=== PATIENT | male | born 1970 | race Caucasian/White ===

== ENCOUNTER 2020-04-27 18:51 | Emergency (ER) | payer OTHER, SELFPAY ==
[2020-04-27 19:10] VITALS: BP 152/88; PULSE 78; RESP 18; TEMP 36.1; O2SAT 96
--- NOTE | 2020-04-27 19:10 | PC.NURSE ---
continue 1:1 monitoring of patient with tool rental technician sitting at door. patient resting at times. appears comfortable. no distress noted. denies pain.
--- NOTE | 2020-04-27 19:10 | PC.NURSE ---
per EMS report, patient called 911 himself for help. patient now being difficult with policies and procedures needed to treat him in the ED. patient states he has been admitted to [facility] for inpatient psych treatment at least 5 times. patient reminded that he knows how the process goes. reviewed again with patient need for changing his clothes and need for labs prior to placement. patient states he is not going to consent to labs. patient advised he can discuss with MD during their evaluation. sitter at bedside. patient sent to restroom to change and provide urine specimen.
--- NOTE | 2020-04-27 19:11 | ECG_ITS ---
Measurements Intervals [place] Rate: 82 P: 16 DE: 124 QRS: 60 QRSD: 90 T: 59 QT: 354 QTc: 414 Interpretive Statements SINUS RHYTHM ST ELEVATION IN ANTEROLAT/INF LEADS, PROBABLY EARLY REPOLARIZATION BORDERLINE ECG Electronically Signed On 04-28-2020 7:46:36 BLOOD BANK WORKER by Nathaniel Naik D.O.
--- NOTE | 2020-04-27 19:17 | PC.NURSE ---
PT is refusing Blood Draw RN notified
--- NOTE | 2020-04-27 19:30 | PC.NURSE ---
continue 1:1 monitoring of patient with medical research tech sitting at door. patient resting at times. appears comfortable. no distress noted. denies pain.
--- NOTE | 2020-04-27 19:30 | PC.NURSE ---
patient sitting on stretcher. security intelligence analyst in department. patient's clothing and belongings placed in storage cabinet here in ED. patient still states he is refusing labs otherwise cooperative. has changed into scrubs provided. will continue to monitor and discuss with patient need for labs and EKG.
--- NOTE | 2020-04-27 19:38 | ED.PSYCH ---
HPI - Psych General Chief Complaint: Psychiatric Symptoms Stated Complaint: SI Time Seen by Provider: 04/27/20 19:38 Source: patient and EMS Limitations: no limitations History of Present Illness HPI Narrative: Patient is a 50-year-old male with a history of former methamphetamine abuse, depression, suicidal ideation who presents for evaluation of suicidal ideation. Patient states that he left [facility] today after stating that they would not give him his prescribed psychiatric medications. Patient states that he was admitted to a inpatient psychiatric facility until Monday when he left to go to a rehabilitation facility for his history of methamphetamine abuse. Patient states that he felt suicidal earlier today, but no longer feels suicidal. He denies specific plan but states he may jump in front of traffic. He denies access to firearms. He denies access to any medications. He denies drug use or alcohol use. Patient denies auditory or visual hallucinations. Related Data Home Medications Medication Instructions Recorded Confirmed fluoxetine 10 mg DAILY 04/27/20 haloperidol 1 mg DAILY 04/27/20 haloperidol [Haldol] 2 mg HS 04/27/20 Allergies Allergy/AdvReac Type Severity Reaction Status Date / Time No Known Allergies Allergy Verified 04/27/20 20:30 Review of Systems Review of Systems: Narrative: CONSTITUTIONAL: Denies fever, chills, or sweats. EYES: Denies visual changes, redness, or discharge. ENT: Denies rhinorrhea, congestion, sore throat, or otalgia. CARDIOVASCULAR: Denies chest pain, palpitations, or edema. RESPIRATORY: Denies cough or dyspnea. GASTROINTESTINAL: Denies abdominal pain, nausea, vomiting, or diarrhea. GENITOURINARY: Denies dysuria or hematuria. SKIN: Denies rash or itching. MUSCULOSKELETAL: Denies back pain, joint pain, or myalgia. NEUROLOGIC: Denies headache, numbness, or weakness. PSYCHIATRIC: Reports anxiety and depression PMF Past Medical History Medical History Depression Methamphetamine abuse Social History Social History (Updated 04/27/20 @ 20:21 by Phyllis Guan MD) Smoking status: Current some day smoker Tobacco type: cigarettes Alcohol intake: former Substance use: former Substance use type: amphetamines Living arrangements: homeless Gender identity (if verbalized by the patient): Male Exam Narrative: Exam Narrative: GENERAL: Awake, alert, conversant HEAD: Normocephalic, atraumatic. EYES: PERRLA and EOMI. ENT: Nares clear, no rhinorrhea or epistaxis. Mucous membranes moist. NECK: Supple. CHEST: No respiratory distress, breathing even and non labored HEART: Regular rate, sinus rhythm ABDOMEN:Non distended, non tender EXTREMITIES: Normal range of motion. No edema. SKIN: Warm, dry, no rash. NEURO:No focal deficits. Alert and oriented x3 Course Vital Signs Vital signs: Vital Signs Temperature 36.1 C L 04/27/20 19:10 Pulse Rate 78 04/27/20 19:10 Respiratory Rate 18 04/27/20 19:10 Blood Pressure 152/88 H 04/27/20 19:10 Pulse Oximetry 96 04/27/20 19:10 Temperature 36.8 C 04/27/20 22:54 Pulse Rate 95 04/27/20 22:54 Respiratory Rate 18 04/27/20 22:54 Blood Pressure 101/67 04/27/20 22:54 Pulse Oximetry 98 04/27/20 22:54 MDM - Psych MDM Narrative Medical decision making narrative: Patient presents for waxing and waning suicidal ideation. Patient has been medically cleared. Awaiting crisis consultation. Pt accepted to [facility], he did eat earlier today and now glucose level is elevated. No glucosuria, not indicative of diabetes. Pt did eat while in the ED. Differential Diagnosis Differential diagnosis: Likely suicidal ideation, depression and acute anxiety Medical Records Attestation: I reviewed the patient's medical records. Lab Data Attestation: I reviewed the patient's lab results. Result diagrams: 04/27/20 19:42 1
[2020-04-27 19:50] LABS: Basophils Absolute Auto 0.1 K/mm3 (0.0-0.1); Basophils Percent Auto 0.8 % (0.2-1.2); Eosinophils Absolute Auto 0.1 K/mm3 (0-0.3); Eosinophils Percent Auto 1.2 % (0-4.4); Hematocrit 41.8 % (42.0-52.0); Hemoglobin 13.3 g/dL (14.0-18.0); Immature Granulocyte Absolute 0.09 K/mm3 (0.00-0.031); Immature Granulocyte Percent A 0.9 % (0-0.5); Lymphocytes Absolute Auto 2.63 K/mm3 (0.9-3.2); Lymphocytes Percent Auto 25.4 % (18.3-44.2); Mean Corpuscular HGB Conc 31.8 g/dl (32-36); Mean Corpuscular Hemoglobin 29.7 pg (26-34); Mean Corpuscular Volume 93.3 fl (80-100); Mean Platelet Volume 9.6 fl (7.4-10.4); Monocytes Absolute Auto 0.7 K/mm3 (0.1-0.6); Monocytes Percent Auto 7.1 % (2.6-8.5); Neutrophils Absolute Auto 6.7 K/mm3 (1.3-6.7); Neutrophils Percent Auto 64.6 % (45.5-73.1); Platelet Count Result 333 k/mm3 (150-375); Red Blood Count 4.48 M/mm3 (4.6-6.20); Red Cell Distribution Width 13.3 % (11.5-14.5); White Blood Count 10.4 K/mm3 (4.5-10.0)
--- NOTE | 2020-04-27 20:00 | PC.NURSE ---
patient now resting quietly. sitter monitoring 1:1. labs sent. urine sent.
[2020-04-27 20:02] LABS: Acetaminophen < 10 ug/mL (10-30); Add Urine Microscopic? YES; Appearance Urine Clear (Clear); Bacteria Urine Trace /hpf; Bilirubin Urine Negative (Negative); Blood Urine 2+ (Negative); Color Urine Yellow (Yellow); Ethanol < 10 mg/dL (<10); Glucose Urine UA Negative (Negative); Ketones Urine Negative (Negative); Leukocyte Esterase Ur Negative LEU/UL (Negative); Mucus Urine Rare /lpf; Nitrate Urine Negative (Negative); Protein Urine Negative (Negative); RBC Urine 21-50 /hpf (0-2); Salicylate < 1.0 mg/dL (2-20); Specific Grav Ur 1.024 (1.001-1.035); Urobilinogen Urine Negative mg/dL (<2.0); WBC Urine 0-3 /hpf
[2020-04-27 20:03] LABS: Alanine Aminotransferase 43 U/L (4-50); Albumin Level 3.8 g/dL (3.5-5.1); Alkaline Phosphatase 130 U/L (38-126); Anion Gap 7 mmol/L (8-16); Aspartate Amino Transferase 39 U/L (17-59); Bilirubin,Total 0.3 mg/dL (0.2-1.3); Blood Urea Nitrogen 22 mg/dL (9-20); Calcium 8.8 mg/dL (8.4-10.2); Carbon Dioxide 30 mmol/L (22-30); Chloride 101 mmol/L (98-107); Estimated CRCL calculation 105 ml/min; Estimated Glomerular Filt Rate > 60; Glucose 194 mg/dL (75-110); Potassium 4.6 mmol/L (3.4-5.0); Sodium 138 mmol/L (137-145)
[2020-04-27 20:07] LABS: Amphetamine Screen Urine Negative (Negative); Barbiturate Screen Urine Negative (Negative); Benzodiazepines Screen Urine Negative (Negative); Cannabinoid Screen Urine Negative (Negative); Cocaine Screen Urine Negative (Negative); Methadone Screen Urine Negative (Negative); Opiate Screen Urine Negative (Negative); Phencyclidine Screen Urine Negative (Negative)
--- NOTE | 2020-04-27 20:24 | PC.NURSE ---
all labs resulted. EKG being done now. service dispatcher placing call to Crisis for eval.
--- NOTE | 2020-04-27 20:30 | PC.NURSE ---
continue 1:1 monitoring of patient with tech intern sitting at door. patient resting at times. appears comfortable. no distress noted. denies pain.
--- NOTE | 2020-04-27 21:00 | PC.NURSE ---
continue 1:1 monitoring of patient with registered dietetic technician sitting at door. patient resting at times. appears comfortable. no distress noted. denies pain.
--- NOTE | 2020-04-27 21:45 | PC.NURSE ---
sitter at doorway. continue 1:1 monitoring. crisis still in department starting paperwork for inpatient placement. Covid swab done due to pending transfer. all explained to patient. patient given pillow. denies any other needs at this time.
--- NOTE | 2020-04-27 21:45 | PC.NURSE ---
Crisis has completed work up with patient. patient does make suicidal statements. copy of Crisis notes on patient's chart. will start calling facilities for placement.
--- NOTE | 2020-04-27 22:07 | PC.NURSE ---
report given to Mansi BEGUM.
[2020-04-27 22:54] VITALS: BP 101/67; PULSE 95; RESP 18; TEMP 36.8; O2SAT 98
[2020-04-28 00:40] LABS: Glucose Point of Care 236 (65-105)
[2020-04-28 00:40] LABS: Glucose Point of Care 240 (65-105)
[2020-04-28 01:09] LABS: Glucose Point of Care 205 (65-105)
--- NOTE | 2020-04-28 01:34 | PC.NURSE ---
Pt stating that he wishes to leave and is asking for his stuff. Pt stated its my stuff and you arent allowed to take it away from me . Pt told that he has a bed at [facility] we are just waiting for his blood sugar to come down below 200. Pt states he is not voluntary anymore and that if i want to go jump off a bridge thats my business and no one can stop me. Crisis and security notified. Anais from Crisis to come out and re-evaluate patient.
--- NOTE | 2020-04-28 01:55 | PC.NURSE ---
pt notified that Anais from Crisis will be coming back to talk to him. Pt states that he is done talking and i will be leaving in 5 minutes . Sitter and security remain at bedside.
[2020-04-28 02:25] LABS: Glucose Point of Care 167 (65-105)
--- NOTE | 2020-04-28 02:28 | PC.NURSE ---
RN called Mery at [facility] and notified her that pts blood glucose is 167. She stated she will call the pump house operator about a getting a room number. Pt has been accepted by Dr. Chamberlain.
[2020-04-28 04:22] VITALS: BP 121/69; PULSE 78; RESP 18; TEMP 36.5; O2SAT 98
--- NOTE | 2020-04-28 05:34 | PC.NURSE ---
Pt agitated, shouting and threatening to run out the ambulance bay doors. Pt states he is ready to and doesnt care how it happens . Pt stated that he doesnt care if the ict help desk technician take him out and he will do whatever it takes so that they kill him . Pt asking for medication to calm down. MD ordered 1mg ativan IM for anxiety.
[2020-04-28] MEDS: LORazepam INJ (*CRX) 2 MG/ML VIAL 1 MG IM (05:50)
[2020-04-28 18:19] LABS: SARS-CoV-2 RNA PCR Negative
== END 2020-04-28 05:50 ==
PROVIDERS: Emergency Provider Emergency Medicine
DX: R45.851 Suicidal ideations (principal); Z20.828 Contact with and (suspected) exposure to other viral communicable diseases; F32.9 Major depressive disorder, single episode, unspecified; F17.210 Nicotine dependence, cigarettes, uncomplicated; R94.31 Abnormal electrocardiogram [ECG] [EKG]
CPT/HCPCS: 36415; 80053; 80307; 81001; 82948; 84443; 85025; 87635; 93005; 96372; 99285; C9803; J2060; U0003

== ENCOUNTER 2020-06-02 08:44 | Emergency (ER) | payer OTHER, SELFPAY ==
[2020-06-02 09:04] VITALS: BP 125/87; PULSE 118; RESP 18; TEMP 36.9; O2SAT 97
--- NOTE | 2020-06-02 09:25 | ED.GENADULT ---
HPI - General Adult General Chief complaint: Unspecified Stated complaint: PSYCH EVAL Source: patient and RN notes reviewed Mode of arrival: ambulatory Limitations: no limitations History of Present Illness HPI narrative: Patient states that he is tired of doing methamphetamine. He wants to be sent to a [facility] and just locked away for ever. [place] here. He states he does not want to do drugs anymore but refuses to be sent to a drug rehab center. He denies being suicidal or homicidal. He denies any pain. complaint: Drug Withdrawl Onset (ago): day(s) (1) Related Data Home Medications Medication Instructions Recorded Confirmed fluoxetine 10 mg DAILY 04/27/20 haloperidol 1 mg DAILY 04/27/20 haloperidol [Haldol] 2 mg HS 04/27/20 Allergies Allergy/AdvReac Type Severity Reaction Status Date / Time No Known Allergies Allergy Verified 04/27/20 20:30 Review of Systems Review of Systems: All systems reviewed & are unremarkable except as noted in HPI and below PMFSH Past Medical History Medical History Depression Methamphetamine abuse Social History Social History Smoking status: Current some day smoker Tobacco type: cigarettes Alcohol intake: former Substance use: former Substance use type: amphetamines Gender identity (if verbalized by the patient): Male Exam Const: General: cooperative, no acute distress, well developed, alert, awake, Physically active and anxious Nutritional Appearance: thin Orientation/consciousness: oriented to person, oriented to place and oriented to time Limitations: no limitations HENMT: Head: normal to inspection Ears: hearing grossly normal bilaterally and external ears normal General nose exam: Normal external nose present Face and sinus: normal facial exam Mouth: Yes Normal oral and palatal mucosa present, Yes lip normal and Yes moist mucous membranes abnormal Eyes: General: appearance normal, both eyes and all related structures Visual Reyes: normal visual reyes by confrontation Eyelids: eyelids normal Conjunctivae: conjunctivae normal Sclera: sclerae normal Pupils: Equal, round and reactive pupils present EOM: EOMs intact bilaterally Neck: Neck: normal visual inspection, full ROM and trachea midline Thyroid: thyroid normal Resp: Effort & Inspection: normal respiratory effort Auscultation: clear to auscultation bilaterally Cardio: Rate: tachycardic Rhythm: regular rhythm Heart sounds: S1 normal heart sound present, S2 normal heart sound present and no murmurs GI: Inspection: normal to inspection GI Palp: No abdominal tenderness, Yes Soft to palpation, No Tenderness to palpation present (GI) and No Guarding due to palpation present (GI) Auscultation: normal bowel sounds Back/Spine/Pelvis: Back: no CVA tenderness Cervical Spine: cervical ROM normal Thoracic/Lumbar Spine: thoraco-lumbar ROM normal Skin: General skin exam: normal color Rashes: no rashes Neuro: General: patient oriented x3, gait normal and moves all extremities Cranial nerves: Yes CN's II-XII intact bilaterally Cognition (Neuro): normal cognition Speech: normal speech Gait exam (Neuro): Normal gait present Motor exam (neuro): 5/5 motor strength present throughout Extrem: General: normal to inspection, full ROM and no clubbing, cyanosis or edema Psych: Appearance: grossly normal Speech and movement: Normal speech and movement present Affect: normal affect Attitude: cooperative Thought process: Normal thought process present Thought content: Yes Normal thought content present Insight: Fair insight present (Psych) Judgement: Good judgement present (Psych) Course Course Emergency Course: Blood test as well as urine test were ordered. The patient flatly refused to have any blood drawn. I explained him t
--- NOTE | 2020-06-02 09:25 | PC.NURSE ---
Pt asked about possible inpatient drug rehab, pt states he does not want to go to rehab and that he wants to [facility] the [facility] . Pt continues to deny suicidal or homicidal ideation. Pt states that he was recently in a psych facility because he had no where to stay and that he kept telling them what they wanted to hear so that they would keep me there. Pt continues to state that rehab does not help and he is tired of disappointing people. Pt given urinal to provide urine sample. unable to at this time.
--- NOTE | 2020-06-02 09:40 | PC.NURSE ---
labs ordered per ed. pt declining to be stuck with needles. pt states he is refusing lab draw. Explained to pt that we have to have him medically cleared before we can get him help. Pt requesting to leave. Pt signed out AMA and left ambulatory.
== END 2020-06-02 09:40 | disposition left against medical advice (07) ==
LOC: CHSED 08:48
PROVIDERS: Emergency Provider Emergency Medicine
DX: F15.10 Other stimulant abuse, uncomplicated (principal)
CPT/HCPCS: 99281; 99282

== ENCOUNTER 2020-07-08 15:05 | Emergency (ER) | payer OTHER, SELFPAY ==
--- NOTE | ~2020-07-08 | XR_ITS ---
EXAMINATION: XR chest 1V portable DATE: 07/08/2020 16:41 INDICATION: Suicidal. Substance abuse. Hyperglycemia and tachycardia. TECHNIQUE: frontal view of the chest was obtained. COMPARISON: None FINDINGS: The lungs are clear with no focal airspace opacities, pulmonary edema, pleural effusion or pneumothor ax. The cardiomediastinal silhouette is normal. Visualized bones and soft tissues are unremarkable. IMPRESSION: 1. No acute cardiopulmonary disease. Reviewed, dictated and finalized at location B. PING CLERK CRATING
--- NOTE | ~2020-07-08 | XR_ITS ---
EXAMINATION: XR lumbar spine 2-3V DATE: 07/08/2020 17:35 INDICATION: Low back pain TECHNIQUE: Anteroposterior and lateral views of the lumbar spine, and cone-down lateral view of the l umbosacral junction were obtained. COMPARISON: None. FINDINGS: There is no fracture, dislocation, or subluxation. The vertebral body heights are normal. T here is mild loss of intervertebral disc space height throughout the lumbar spine. Large bridging end plate osteophytes are noted throughout the lumbar spine. Surgical clips in the right upper quadrant a re likely from prior cholecystectomy. Changes of total hip arthroplasty are noted. IMPRESSION: 1. Lumbar spondylosis without acute findings. Reviewed, dictated and finalized at location A. NESS SYSTEMS LEAD
[2020-07-08 15:15] VITALS: BP 116/70; PULSE 76; RESP 16; TEMP 36.3; O2SAT 97
--- NOTE | 2020-07-08 15:24 | ECG_ITS ---
Measurements Intervals [place] Rate: 73 P: 25 VT: 147 QRS: 38 QRSD: 87 T: 61 QT: 365 QTc: 403 Interpretive Statements SINUS RHYTHM NORMAL ECG Electronically Signed On 07-08-2020 15:43:21 FREELANCE PHOTOGRAPHER by Nathaniel Naik D.O.
[2020-07-08 15:51] LABS: Basophils Absolute Auto 0.05 K/mm3 (0.00-0.10); Basophils Percent Auto 0.6 % (0.0-1.0); Eosinophils Absolute Auto 0.09 K/mm3 (0.02-0.50); Hematocrit 41.1 % (40.0-54.0); Hemoglobin 13.5 g/dL (14.0-18.0); Immature Granulocyte Absolute 0.03 K/mm3 (0.00-0.00); Immature Granulocyte Percent A 0.3 % (0.0-0.0); Lymphocytes Absolute Auto 2.12 K/mm3 (1.10-4.50); Lymphocytes Percent Auto 23.7 % (18.0-42.0); Mean Corpuscular HGB Conc 32.8 g/dL (32.0-36.0); Mean Corpuscular Volume 91.3 fL (78.0-102.0); Mean Platelet Volume 9.6 fl (8.7-11.0); Monocytes Absolute Auto 0.73 K/mm3 (0.10-0.90); Monocytes Percent Auto 8.2 % (2.0-11.0); Neutrophils Absolute Auto 5.9 K/mm3 (1.7-7.2); Neutrophils Percent Auto 66.2 % (50.0-70.0); Platelet Count Result 314 K/mm3 (150-420)
[2020-07-08] MEDS: LORazepam (*CRX) 1 MG TABLET PO (15:56)
--- NOTE | 2020-07-08 16:06 | PC.NURSE ---
ASSISTANT OCEANOGRAPHER, AUGUST, AT BEDSIDE. POLICY PROVIDED. SITTER LOG PROVIDED.
[2020-07-08 16:08] LABS: SARS-CoV-2 Ag Negative (Negative)
[2020-07-08 16:13] LABS: Alanine Aminotransferase 47 U/L (16-63); Albumin Level 3.2 g/dL (3.4-5.0); Alkaline Phosphatase 142 U/L (46-116); Anion Gap 8 mmol/L (8-16); Aspartate Amino Transferase 26 U/L (15-37); Bilirubin,Total 0.4 mg/dL (0.00-1.00); Blood Urea Nitrogen 18 mg/dL (7-18); Calcium 8.6 mg/dL (8.5-10.1); Carbon Dioxide 25 mmol/L (21-32); Chloride 102 mmol/L (98-108); Estimated CRCL calculation 87 ml/min; Estimated Glomerular Filt Rate > 60; Glucose 201 mg/dL (70-99); Osmolality Calculated 287 mOsm/kg (285-295); Potassium 4.3 mmol/L (3.5-5.1); Salicylate 0.9 mg/dL (2.8-20.0); Sodium 135 mmol/L (136-145); Total Protein 6.9 g/dL (6.4-8.2)
[2020-07-08 16:14] LABS: Acetaminophen < 2 ug/mL (10-30); Ethanol < 3 mg/dL (0-6); Free T4 Free Thyroxine 1.04 ng/dL (0.76-1.46)
[2020-07-08 16:15] LABS: Thyroid Stimulating Hormone 1.72 uIU/mL (0.36-3.74)
--- NOTE | 2020-07-08 16:29 | ED.PSYCH ---
HPI - Psych General Chief Complaint: Psychiatric Symptoms Stated Complaint: depression, suicidal Time Seen by Provider: 07/08/20 15:20 Source: patient and family Mode of arrival: ambulatory History of Present Illness HPI Narrative: Patient says he wants to kill himself. He was at his home with a loaded gun thinking of shooting himself when his ex- showed up and then he he said he could not do it. He has had multiple episodes of suicidal ideation in the past and says he has been hospitalized four times this year. He believes he would have killed himself had his ex- not intervened. complaint: feels depressed Onset (ago): hour(s) Duration: intermittent Relieving factors: none Exacerbating factors: none Associated psychiatric symptoms: depression and suicidal ideation Associated symptoms: denies other symptoms Related Data Home Medications Medication Instructions Recorded Confirmed fluoxetine 10 mg DAILY 04/27/20 07/08/20 haloperidol 1 mg DAILY 04/27/20 07/08/20 haloperidol [Haldol] 2 mg HS 04/27/20 07/08/20 Allergies Allergy/AdvReac Type Severity Reaction Status Date / Time No Known Allergies Allergy Verified 04/27/20 20:30 Review of Systems Constitutional: Constitutional: Reports no additional constitutional complaints Eyes: Eyes: Reports no additional eye complaints ENT: Reports system reviewed and no additional complaints, except as documented Cardiovascular: Cardiovascular: Reports no additional cardiovascular complaints Respiratory: Respiratory: Reports no additional respiratory complaints Gastrointestinal: Gastrointestinal: Reports no additional gastrointestinal complaints Genitourinary: Genitourinary: Reports no additional male genitourinary complaints Musculoskeletal: Musculoskeletal: Reports no additional musculoskeletal complaints Integumentary/Breasts: Skin/Breast: Reports system reviewed and no additional complaints, except as docu Neurologic: Reports system reviewed and no additional complaints, except as documented Psychiatric: Psychiatric: Reports no additional psychiatric complaints Endocrine: Endocrine: Reports no additional endocrine complaints Hematologic/Lymphatic: Hematologic/Lymphatic: Reports no additional hematologic/lymphatic complaints Allergic/Immunologic: Allergic/Immunologic: Reports no additional allergic/immunologic complaints PMFSH Past Medical History Medical History Depression Methamphetamine abuse Surgical History Surgical History H/O knee surgery Family History Family History (Updated 07/08/20 @ 17:30 by Luis Galloway MD) Mother Family history non-contributory Social History Social History Smoking status: Current some day smoker Tobacco type: cigarettes Alcohol intake: former Substance use: former Substance use type: amphetamines Gender identity (if verbalized by the patient): Male Exam Const: General: no acute distress HENMT: Head: normal to inspection Ears: external ears normal and TM's normal bilaterally General nose exam: Normal external nose present Face and sinus: normal facial exam Mouth: Yes Normal oral and palatal mucosa present Eyes: Conjunctivae: conjunctivae normal Neck: Neck: normal visual inspection Chest: Chest palpation & inspection: normal inspection of the chest Resp: Effort & Inspection: normal respiratory effort Cardio: Rate: regular rate Rhythm: regular rhythm GI: GI Palp: Yes Soft to palpation (nontender) Skin: General skin exam: normal color Neuro: General: patient oriented x3 and moves all extremities Extrem: General: normal to inspection Psych: Thought content: Yes Normal thought content present Course Course Emergency Course: EKG, CXR, labs were drawn. The mental health counselor was called. We will follow his rec
[2020-07-08 17:21] LABS: Add Urine Microscopic? NO; Appearance Urine Clear (Clear); Bilirubin Urine Negative (Negative); Blood Urine Negative (Negative); Color Urine Yellow (Yellow); Glucose Urine UA Negative (Negative); Ketones Urine Negative (Negative); Leukocyte Esterase Ur Negative (Negative); Nitrate Urine Negative (Negative); Protein Urine Negative (Negative); Specific Grav Ur >= 1.030 (1.010-1.020); Urobilinogen Urine 0.2 mg/dL (0.2-1.0)
[2020-07-08 17:28] LABS: Amphetamine Screen Urine Negative (Negative); Barbiturate Screen Urine Negative (Negative); Benzodiazepines Screen Urine Negative (Negative); Cannabinoid Screen Urine Negative (Negative); Cocaine Screen Urine Negative (Negative); Methadone Screen Urine Negative (Negative); Opiate Screen Urine Negative (Negative); Phencyclidine Screen Urine Negative (Negative)
[2020-07-08 17:30] LABS: BNP < 5.0 pg/mL (0-100)
[2020-07-08 17:46] VITALS: BP 116/74; PULSE 77; RESP 15; O2SAT 96
--- NOTE | 2020-07-08 19:10 | PC.NURSE ---
Pt. sitting in bed watching TV, cooperative c care, sitter at bedside under close observation. Awaiting Andrae from mental health to arrive for eval.
[2020-07-08 19:40] VITALS: BP 120/71; PULSE 80; RESP 18; O2SAT 98
--- NOTE | 2020-07-08 20:27 | PC.NURSE ---
Myles from [facility] called for updated report. Will await call back for availablility and acceptance.
--- NOTE | 2020-07-08 21:50 | PC.NURSE ---
Call from [facility] and acceptance received. Report given and ETA to facility given. Paperwork signed for transfer.
[2020-07-08 22:00] VITALS: BP 122/73; PULSE 80; RESP 20; TEMP 36.2; O2SAT 100
--- NOTE | 2020-07-08 22:14 | PC.NURSE ---
Report to [facility] crew, pt. loaded for transfer and cooperative c care.
== END 2020-07-08 22:14 ==
PROVIDERS: Emergency Provider Emergency Medicine
DX: R45.851 Suicidal ideations (principal); Z20.822 Contact with and (suspected) exposure to COVID-19
CPT/HCPCS: 36415; 71045; 72100; 80053; 80307; 81003; 83880; 84439; 84443; 85025; 87426; 93005; 99285; A9270; C9803

== ENCOUNTER 2020-07-28 02:42 | Emergency (ER) | payer OTHER, SELFPAY ==
--- NOTE | 2020-07-28 02:56 | ECG_ITS ---
Measurements Intervals [place] Rate: 102 P: 27 NV: 137 QRS: 39 QRSD: 90 T: 49 QT: 330 QTc: 430 Interpretive Statements SINUS TACHYCARDIA ST ELEVATION IN ANT/INF LEADS, PROBABLY EARLY REPOLARIZATION BORDERLINE ECG Electronically Signed On 07-28-2020 7:00:25 CDT by Nathaniel Naik D.O.
[2020-07-28 03:00] VITALS: BP 109/77; PULSE 100; RESP 18; TEMP 36.5; O2SAT 96
--- NOTE | 2020-07-28 03:05 | PC.NURSE ---
Pt. reports wanting to end his life because he feels he is a burden and always unhappy anyway. Pt. states he has been in numerous programs and nothing has helped c his depression.
--- NOTE | 2020-07-28 03:10 | PC.NURSE ---
Sitter protocol initiated. Calls made for a sitter, unsuccessful at this time. Pt. in close observation room in sight of this RN.
[2020-07-28 03:15] LABS: Basophils Absolute Auto 0.02 K/mm3 (0.00-0.10); Basophils Percent Auto 0.1 % (0.0-1.0); Hemoglobin 13.4 g/dL (14.0-18.0); Immature Granulocyte Absolute 0.11 K/mm3 (0.00-0.00); Immature Granulocyte Percent A 0.7 % (0.0-0.0); Lymphocytes Absolute Auto 0.83 K/mm3 (1.10-4.50); Lymphocytes Percent Auto 4.9 % (18.0-42.0); Mean Corpuscular HGB Conc 32.7 g/dL (32.0-36.0); Mean Corpuscular Volume 91.7 fL (78.0-102.0); Mean Platelet Volume 9.3 fl (8.7-11.0); Monocytes Absolute Auto 1.28 K/mm3 (0.10-0.90); Monocytes Percent Auto 7.6 % (2.0-11.0); Neutrophils Absolute Auto 14.6 K/mm3 (1.7-7.2); Neutrophils Percent Auto 86.7 % (50.0-70.0); Platelet Count Result 299 K/mm3 (150-420); Red Blood Count 4.47 M/mm3 (4.70-6.10); White Blood Count 16.9 K/mm3 (4.8-10.8)
[2020-07-28 03:21] LABS: Add Urine Microscopic? YES; Appearance Urine Clear (Clear); Bilirubin Urine Negative (Negative); Blood Urine 3+ (Negative); Color Urine Yellow (Yellow); Glucose Urine UA 3+ (Negative); Ketones Urine Negative (Negative); Leukocyte Esterase Ur Negative LEU/UL (Negative); Nitrate Urine Negative (Negative); Protein Urine 1+ (Negative); Specific Grav Ur >= 1.030 (1.010-1.020); Urobilinogen Urine 0.2 mg/dL (0.2-1.0); pH Urine 5.5 (5.0-8.0)
[2020-07-28 03:27] LABS: Amphetamine Screen Urine Negative (Negative); Barbiturate Screen Urine Negative (Negative); Benzodiazepines Screen Urine Negative (Negative); Cannabinoid Screen Urine Negative (Negative); Cocaine Screen Urine Negative (Negative); Methadone Screen Urine Negative (Negative); Opiate Screen Urine Negative (Negative); Phencyclidine Screen Urine Negative (Negative)
[2020-07-28 03:28] LABS: Bacteria Urine Trace /hpf; Squamous Epithelial Cell Urine None seen /hpf (Few); WBC Urine 0-3 /hpf (0-3)
[2020-07-28 03:45] LABS: Alanine Aminotransferase 41 U/L (16-63); Albumin Level 3.8 g/dL (3.4-5.0); Alkaline Phosphatase 107 U/L (46-116); Anion Gap 14 mmol/L (8-16); Aspartate Amino Transferase 34 U/L (15-37); Bilirubin,Total 0.8 mg/dL (0.00-1.00); Blood Urea Nitrogen 20 mg/dL (7-18); Calcium 8.5 mg/dL (8.5-10.1); Carbon Dioxide 22 mmol/L (21-32); Chloride 97 mmol/L (98-108); Estimated CRCL calculation 69 ml/min; Estimated Glomerular Filt Rate > 60; Ethanol 3 mg/dL (0-6); Glucose 338 mg/dL (70-99); Osmolality Calculated 291 mOsm/kg (285-295); Potassium 4.4 mmol/L (3.5-5.1); Salicylate 1.4 mg/dL (2.8-20.0); Sodium 133 mmol/L (136-145); Thyroid Stimulating Hormone 2.39 uIU/mL (0.36-3.74); Total Protein 7.6 g/dL (6.4-8.2)
[2020-07-28 03:48] LABS: Acetaminophen < 2 ug/mL (10-30)
--- NOTE | 2020-07-28 04:23 | ED.PSYCH ---
HPI - Psych General Chief Complaint: Psychiatric Symptoms Stated Complaint: suicide attempt Source: patient Mode of arrival: ambulatory Limitations: no limitations History of Present Illness HPI Narrative: This is a 50-year-old male with a history of depression and history of suicidal ideation with apparent suicide attempt with a gun approximately 2 weeks ago and was stopped by his girlfriend. Apparently today he claims that he did heroin and an attempt to commit suicide. Patient does have a history of depression and currently is without any chest pain no shortness of breath no abdominal pain no diarrhea constipation no nausea vomiting. MD complaint: suicidal ideation and feels depressed Onset (ago): hour(s) Duration: constant History of same: Yes Relieving factors: none Exacerbating factors: none Context: recent drug abuse Associated psychiatric symptoms: depression Associated symptoms: denies other symptoms Treatments prior to arrival: none If self harm: admits thoughts of self harm, has plan, has acted on plan and intentional overdose Related Data Home Medications Medication Instructions Recorded Confirmed fluoxetine 10 mg DAILY 04/27/20 07/28/20 haloperidol 1 mg DAILY 04/27/20 07/28/20 haloperidol [Haldol] 2 mg HS 04/27/20 07/28/20 metformin 500 mg PO BID 07/28/20 07/28/20 Allergies Allergy/AdvReac Type Severity Reaction Status Date / Time No Known Allergies Allergy Verified 04/27/20 20:30 Review of Systems Review of Systems: All systems reviewed & are unremarkable except as noted in HPI and below PMFSH Past Medical History Medical History Depression Methamphetamine abuse Surgical History Surgical History H/O knee surgery Family History Family History Mother Family history non-contributory Social History Social History Smoking status: Current some day smoker Tobacco type: cigarettes Alcohol intake: former Substance use: former Substance use type: amphetamines Gender identity (if verbalized by the patient): Male Exam Const: General: no acute distress and alert Orientation/consciousness: patient oriented x3 HENMT: Head: normal to inspection Eyes: Pupils: Equal, round and reactive pupils present EOM: EOMs intact bilaterally Neck: Neck: normal visual inspection, no lymphadenopathy and no meningeal signs Chest: Chest palpation & inspection: normal inspection of the chest Resp: Effort & Inspection: normal respiratory effort Auscultation: clear to auscultation bilaterally Cardio: Rate: regular rate Rhythm: regular rhythm GI: GI Palp: Yes Soft to palpation Percussion: Yes normal to percussion Skin: General skin exam: normal color Rashes: no rashes Neuro: General: patient oriented x3, moves all extremities and no meningeal signs Extrem: General: normal to inspection Psych: Appearance: disheveled Thought content: Yes Suicidality present Course Course Emergency Course: Reassessment of patient continues to be resting comfortably has a sitter and a mental health evaluation has been called to come and assess the patient. Vital Signs Vital signs: Vital Signs Temperature 36.5 C 07/28/20 03:00 Pulse Rate 100 07/28/20 03:00 Respiratory Rate 18 07/28/20 03:00 Blood Pressure 109/77 07/28/20 03:00 Pulse Oximetry 96 07/28/20 03:00 Temperature 36.5 C 07/28/20 03:00 Pulse Rate 100 07/28/20 03:00 Respiratory Rate 18 07/28/20 03:00 Blood Pressure 109/77 07/28/20 03:00 Pulse Oximetry 96 07/28/20 03:00 MDM - Psych Lab Data Result diagrams: 07/28/20 03:10 07/28/20 03:11 Labs: Lab Results 07/28/20 07/28/20 07/28/20 Range/Units 03:10 03:11 03:11 WBC 16.9 H (4.8-10.8) K/mm3 RB
--- NOTE | 2020-07-28 05:16 | PC.NURSE ---
Pt. sitting bedside eating sandwich. No c/o, mental health counselor here for ptAlena younger.
--- NOTE | 2020-07-28 06:28 | PC.NURSE ---
Andrae from [facility] to attempt to find placement for pt. Pt. under close obs. c sitter at bedside.
[2020-07-28 06:43] LABS: SARS-CoV-2 Ag Negative (Negative)
--- NOTE | 2020-07-28 07:08 | PC.NURSE ---
Pt. resting, Andrae still attempting to find placement for pt. Report given to SHY Sethi. Sitter at bedside.
[2020-07-28 08:01] VITALS: BP 117/71; PULSE 95; RESP 16; O2SAT 96
--- NOTE | 2020-07-28 08:46 | PC.NURSE ---
Continue to await bed placement for psych placement for pt. pt to be placed as er hold to room 206. Report to Joel BEGUM
[2020-07-28 09:00] VITALS: BP 113/69; PULSE 96; RESP 20; TEMP 37.2; O2SAT 95
--- NOTE | 2020-07-28 09:00 | PC.NURSE ---
Patient arrived to room 206, close to nurses station to observe. Sitter at bedside. Will continue to monitor.
--- NOTE | 2020-07-28 09:11 | PC.NURSE ---
Nurse from [facility] called to get update on pt and then will present case to their physician. awaiting return call.
--- NOTE | 2020-07-28 09:55 | PC.NURSE ---
Patient up to use the restroom and back to bed. Sitter remains at bedside.
--- NOTE | 2020-07-28 10:50 | PC.NURSE ---
Jossie RN from ER called upstairs to notify us that [facility] is unable to accept patient. She asked me to fax paperwork to [facility] to see if they will accept patient; paperwork faxed.
--- NOTE | 2020-07-28 10:53 | PC.NURSE ---
Grace from [facility] called to report that [facility] declined to accept the pt to their facility.
--- NOTE | 2020-07-28 13:00 | PC.NURSE ---
1300 Called to ER re: to verify order for insulin as patient has already eaten lunch. Per Dr. Galloway, get an accu check and call back with results. 1305 Returned call to ER re: accu check is 241, also patient would like some Tylenol for a headache. Per Dr. Galloway give 6 units of regular insulin and 650mg of Tylenol. 1307 Dr. Galloway called upstairs and said to cancel the order for insulin.
[2020-07-28] MEDS: ACETAMINOPHEN 325 MG TABLET 650 MG PO (13:13)
--- NOTE | 2020-07-28 13:25 | PC.NURSE ---
Received a call from Cortney (intake) at [facility] re: she received a call from [facility] about a possible transfer to their facility. She asked to speak with the patient, call transferred to patient's room.
--- NOTE | 2020-07-28 14:34 | PC.NURSE ---
Patient resting in bed and watching television with sitter at bedside. Headache improved. Will continue to monitor.
--- NOTE | 2020-07-28 15:00 | PC.NURSE ---
Patient resting in bed near nurses desk. Report given to Karen BEGUM. Will continue to monitor.
--- NOTE | 2020-07-28 16:04 | PC.NURSE ---
Patient currently resting in bed watching T.V. Denies any pain. Denies any physical complaints. Patient is cooperative. States I wish I would have . My girlfriend found me on the floor. I tried to overdose on heroin. I tried to shoot myself about 3 weeks ago. I just can't live with not seeing my girls. I have lost so much time. I got clean and sober for 2 months. My girls mom still won't let me see them. I think what's the use. I hurt. I want to end it. Patient reports struggling with drug abuse for years. Denies any s/s of depression until about 2 years ago. States I have so much guilt. I should be there for my girls and I can't. Their mom won't let me. Patient report taking [place] and Prozac for his depression. Will continue to monitor patient to keep him safe.
--- NOTE | 2020-07-28 16:23 | PC.NURSE ---
Vital signs: Temp 97.4, Pulse 83, Resp 18, BP 118/68, Sats 96%
--- NOTE | 2020-07-28 16:43 | PC.NURSE ---
Patient sitting on the side of bed watching T. V. Continues to be cooperative. No behaviors. Blood sugar 194.
[2020-07-28 16:44] LABS: Glucose Point of Care 194 (65-105)
[2020-07-28] MEDS: metFORMIN HCL 500 MG TABLET PO (17:07)
--- NOTE | 2020-07-28 17:25 | PC.NURSE ---
Patient continues to be cooperative. No behaviors displayed. Ate 100% of supper. Currently, sitting on the side of bed watching T. V.
--- NOTE | 2020-07-28 17:25 | ED.PSYCH ---
HPI - Psych General Source: patient Mode of arrival: ambulatory Limitations: no limitations History of Present Illness HPI Narrative: Mr Turner is a patient I have seen before. He was here about 2 weeks ago after having suicidal ideation. At that time he had been despondent, and was planning on shooting himself. He had the gun, and was ready to do this. He was interrupted by a girlfriend, who intervened, and stopped him before he completed his plan. He was placed in a psychiatric facility for that. He comes in now after a suicide attempt at home. He had bought heroin, an large amount, with a plan to kill himself with that. He took the heroin, and passed out. He later woke up on his bathroom floor, and is brought in now, after having attempted suicide. MD complaint: feels depressed Onset (ago): week(s) History of same: Yes Relieving factors: none Exacerbating factors: none Associated symptoms: denies other symptoms Treatments prior to arrival: other (Recent admission to locked psychiatric facility ) If self harm: admits thoughts of self harm, has plan, has acted on plan and intentional overdose Related Data Home Medications Medication Instructions Recorded Confirmed fluoxetine 10 mg DAILY 04/27/20 07/28/20 haloperidol 1 mg DAILY 04/27/20 07/28/20 haloperidol [Haldol] 2 mg HS 04/27/20 07/28/20 metformin 500 mg PO BID 07/28/20 07/28/20 Allergies Allergy/AdvReac Type Severity Reaction Status Date / Time No Known Allergies Allergy Verified 04/27/20 20:30 Review of Systems Review of Systems: All systems reviewed & are unremarkable except as noted in HPI and below (history of present illness) Constitutional: Constitutional: Reports no additional constitutional complaints Eyes: Eyes: Reports no additional eye complaints Cardiovascular: Cardiovascular: Reports no additional cardiovascular complaints Respiratory: Respiratory: Reports no additional respiratory complaints Gastrointestinal: Gastrointestinal: Reports no additional gastrointestinal complaints Genitourinary: Genitourinary: Reports no additional male genitourinary complaints Musculoskeletal: Musculoskeletal: Reports no additional musculoskeletal complaints Neurologic: Reports system reviewed and no additional complaints, except as documented Psychiatric: Psychiatric: Reports no additional psychiatric complaints Endocrine: Endocrine: Reports no additional endocrine complaints Hematologic/Lymphatic: Hematologic/Lymphatic: Reports no additional hematologic/lymphatic complaints Allergic/Immunologic: Allergic/Immunologic: Reports no additional allergic/immunologic complaints PMFSH Past Medical History Medical History Depression Methamphetamine abuse Surgical History Surgical History H/O knee surgery Family History Family History Mother Family history non-contributory Social History Social History (Updated 07/28/20 @ 17:58 by Luis Galloway MD) Smoking status: Current some day smoker Tobacco type: cigarettes Alcohol intake: former Substance use type: heroin Other substance usage details: used meth in the past, recent herion use in suicide attempt Gender identity (if verbalized by the patient): Male Sexual Orientation (if Verbalized by the Patient): Straight or Heterosexual Exam Const: General: no acute distress Orientation/consciousness: patient oriented x3 HENMT: Head: normal to inspection Ears: external ears normal General nose exam: Normal external nose present Mouth: Yes Normal oral and palatal mucosa present Throat: posterior oropharynx normal Eyes: Conjunctivae: conjunctivae normal Neck: Neck: normal visual inspection Chest: Chest palpation & inspection: normal inspection of the chest Resp: Effort & Inspection: normal respiratory effort Aus
[2020-07-28 18:05] LABS: Glucose Point of Care 294 (65-105)
--- NOTE | 2020-07-28 18:05 | PC.NURSE ---
Recheck blood sugar 294. Patient continues to be cooperative and pleasant. No behaviors noted. Currently, resting in bed.
[2020-07-28] MEDS: FLUoxetine HCL 10 MG CAPSULE PO (18:35)
--- NOTE | 2020-07-28 18:41 | PC.NURSE ---
Patient currently sleeping in bed.
[2020-07-28 19:35] LABS: Glucose Point of Care 261 (65-105)
--- NOTE | 2020-07-28 19:45 | PC.NURSE ---
pt resting in bed watching tv, denies any thoughts of harming himself at this time, denies any needs at this time. pt in view of this RN and kiln charger
[2020-07-28 20:35] LABS: Glucose Point of Care 251 (65-105)
[2020-07-28 22:03] LABS: Glucose Point of Care 145 (65-105)
[2020-07-28 22:05] VITALS: BP 110/76; PULSE 82; RESP 18; TEMP 37.2; O2SAT 93
--- NOTE | 2020-07-28 23:02 | PC.NURSE ---
Paulina from [facility] called and stated that patient was declined for admission to their facility.
--- NOTE | 2020-07-28 23:49 | PC.NURSE ---
Andrae, counselor from [facility], returned the call regarding pt. Explained to him that [facility] refused to take pt and that we still need to find placement for pt. Andrae said he will continue to attempt to find placement for pt, however, it may be in the [place] area as he has tried to find placement in this area.
--- NOTE | 2020-07-29 01:13 | PC.NURSE ---
Notified Dr. Galloway of pt's c/o neck pain; Pt states he usually takes ibuprofen for neck pain rather than Tylenol. New orders received and noted.
[2020-07-29] MEDS: IBUPROFEN 400 MG TABLET PO (01:27)
--- NOTE | 2020-07-29 07:15 | PC.NURSE ---
Sitting up watching TV at this time
[2020-07-29 07:34] LABS: Glucose Point of Care 190 (65-105)
[2020-07-29 08:07] VITALS: BP 111/74; PULSE 76; RESP 18; TEMP 36.6; O2SAT 95
--- NOTE | 2020-07-29 08:30 | PC.NURSE ---
Up in room to void, tolerated well, back to bed, cooperative
--- NOTE | 2020-07-29 09:30 | PC.NURSE ---
Resting in bed, up independent in room, in direct view of staff at all times, cooperative, continue to await placement for psych services
--- NOTE | 2020-07-29 11:19 | PC.NURSE ---
Faxed voluntary admit paperwork to [facility], awaiting call back
[2020-07-29 11:58] LABS: Glucose Point of Care 233 (65-105)
--- NOTE | 2020-07-29 12:00 | PC.NURSE ---
Eating lunch, tolerating well, cooperative, in view of staff at all times
--- NOTE | 2020-07-29 13:00 | PC.NURSE ---
Resting quietly, awaiting bed assisgnment from [facility]
--- NOTE | 2020-07-29 13:57 | ED.GENADULT ---
HPI - General Adult General Chief complaint: Psychiatric Symptoms Stated complaint: suicide attempt Time Seen by Provider: 07/28/20 10:10 Source: patient Mode of arrival: ambulatory Limitations: no limitations History of Present Illness HPI narrative: Torsten is a 50M that was placed upstairs as an ER hold for SI. Please see previous notes for details. Today he denies any physical sympptoms including headache, SOB, CP, abdominal pain, N/V/D and dysuria. Related Data Home Medications Medication Instructions Recorded Confirmed fluoxetine 10 mg DAILY 04/27/20 07/28/20 haloperidol 1 mg DAILY 04/27/20 07/28/20 haloperidol [Haldol] 2 mg HS 04/27/20 07/28/20 metformin 500 mg PO BID 07/28/20 07/28/20 Allergies Allergy/AdvReac Type Severity Reaction Status Date / Time No Known Allergies Allergy Verified 04/27/20 20:30 Review of Systems Review of Systems: All systems reviewed & are unremarkable except as noted in HPI and below PMFSH Past Medical History Medical History Depression Methamphetamine abuse Surgical History Surgical History H/O knee surgery Family History Family History Mother Family history non-contributory Social History Social History Smoking status: Current some day smoker Tobacco type: cigarettes Alcohol intake: former Substance use type: heroin Other substance usage details: used meth in the past, recent herion use in suicide attempt Gender identity (if verbalized by the patient): Male Exam Const: General: cooperative, comfortable and no acute distress HENMT: Head: normal to inspection Eyes: General: appearance normal, both eyes and all related structures Neck: Neck: normal visual inspection Chest: Chest palpation & inspection: normal inspection of the chest Resp: Effort & Inspection: normal respiratory effort and able to speak in complete sentences Cardio: Jugular venous distension: no JVD Rate: regular rate GI: Inspection: normal to inspection Skin: General skin exam: normal color and no rashes or lesions noted Neuro: General: oriented to person, oriented to place, oriented to time, patient oriented x3 and CN's II-XI intact bilaterally Extrem: General: normal to inspection Psych: Appearance: grossly normal Mental Status: mental status grossly normal Course Course Emergency Course: Torsten received a bed at [facility] and was transferred for psychiatric care. Vital Signs Vital signs: Vital Signs Temperature 97.7 F 07/28/20 03:00 Pulse Rate 100 07/28/20 03:00 Respiratory Rate 18 07/28/20 03:00 Blood Pressure 109/77 07/28/20 03:00 Pulse Oximetry 96 07/28/20 03:00 Temperature 97.7 F 07/29/20 15:22 Pulse Rate 76 07/29/20 15:22 Respiratory Rate 18 07/29/20 15:22 Blood Pressure 116/70 07/29/20 15:22 Pulse Oximetry 97 07/29/20 15:22 Medical Decision Making Vital Signs Vital Signs: Vital Signs Temperature 97.7 F 07/28/20 03:00 Pulse Rate 100 07/28/20 03:00 Respiratory Rate 18 07/28/20 03:00 Blood Pressure 109/77 07/28/20 03:00 Pulse Oximetry 96 07/28/20 03:00 Temperature 97.7 F 07/29/20 15:22 Pulse Rate 76 07/29/20 15:22 Respiratory Rate 18 07/29/20 15:22 Blood Pressure 116/70 07/29/20 15:22 Pulse Oximetry 97 07/29/20 15:22 Lab Data Result diagrams: 07/28/20 03:10 07/28/20 03:11 Labs: Lab Results 07/28/20 07/28/20 07/28/20 Range/Units 03:10 03:11 03:11 WBC 16.9 H (4.8-10.8) K/mm3 RBC 4.47 L (4.70-6.10) M/mm3 Hgb 13.4 L (14.0-18.0) g/dL Hct 41.0 (40.0-54.0) % MCV 91.7 (78.0-102.0) fL MCH 30.0 (27.0-31.0) pg MCHC 32.7 (32.0-36.0) g/dL RDW 13.0 (11.6-14.4) % Plt Count 2
--- NOTE | 2020-07-29 14:00 | PC.NURSE ---
Obtained consent for transfer to [facility], report to Kita at [facility]
--- NOTE | 2020-07-29 15:11 | PC.NURSE ---
Discharge to [facility] via [facility] as direct admti
[2020-07-29 15:22] VITALS: BP 116/70; PULSE 76; RESP 18; TEMP 36.5; O2SAT 97
[2020-08-05 16:09] LABS: Glucose Point of Care 241 (65-105)
== END 2020-07-29 15:15 ==
LOC: CHSED 07:13 → CHS2ND 12:56
PROVIDERS: Emergency Medicine; Emergency Provider Family Medicine
DX: T14.91XA Suicide attempt, initial encounter (principal); Z20.822 Contact with and (suspected) exposure to COVID-19; T50.902A Poisoning by unspecified drugs, medicaments and biological substances, intentional self-harm, initial encounter
CPT/HCPCS: 36415; 80053; 80307; 81001; 82948; 84443; 85025; 87426; 93005; 99285; A9270; C9803; J1815